=== PATIENT | male | born 1980 | race Hispanic/Latino ===

== ENCOUNTER 2021-08-26 16:46 | Emergency (ER) | payer OTHER ==
[~2021-08-26] VITALS: Ht 154.9 cm; Wt 99.8 kg
[2021-08-26] MEDS ORDERED: PREDNISONE50 MG PO (17:26)
[2021-08-26] MEDS ORDERED: METHOCARBAMOL750 MG PO (17:26)
[2021-08-26 17:40] VITALS: BP 134/82
== END 2021-08-26 17:40 | disposition home or self-care (01) ==
LOC: ER 17:17
DX: M54.41 Lumbago with sciatica, right side (principal)
CPT/HCPCS: 99282